=== PATIENT | female | born 1980 | race Caucasian/White ===

== ENCOUNTER 2017-01-28 23:05 | Emergency (ER) | payer OTHER ==
--- NOTE | ~2017-01-28 | EKG ---
PATIENT: MONICA KONG UNIT #: [id number] Ventricular Rate: 98 BPM Atrial Rate: 98 BPM P-R Interval: 118 ms QRS Duration: 76 ms Q-T Interval: 342 ms QTC Calculation(Bezet): 436 ms P [place]: 70 degrees Calculated R [place]: 53 degrees Calculated T [place]: 65 degrees Diagnosis Line: Normal sinus rhythm Diagnosis Line: Possible Left atrial enlargement Diagnosis Line: Borderline ECG Diagnosis Line: When compared with ECG of 28-JAN-2017 22:39, Diagnosis Line: (unconfirmed) Diagnosis Line: No significant change was found Diagnosis Line: Confirmed by ELIAS LAWTON MD ([id number]) on Diagnosis Line: 01/30/2017 4:44:42 PM INTERPRETING MD: KARLA
--- NOTE | ~2017-01-28 | CR72 ---
[facility] A Service of [facility] RADIOLOGY TEXT RESULTS PATIENT: MONICA KONG LOCATION: [facility] : 84 UNIT #: [id number] AGE: [address]: Paulino Ashby MD SEX: F ORDER DR: [id number] [facility] [address] [place], [place] [address] [id number] E MR#: [id number] Acc #: [id number] NAME: MONICA KONG : 1980 SEX: F STUDY DATE/TIME: 01/28/2017 22:24 UNIT: [facility] ROOM: STUDY DESCRIPTION: CR Chest Single View Portable Attending Physician: Paulino Ashby M.D. Ordering Physician: Ed Joey Pritchard M.D. Primary Care Physician: Primary Care Physician No MEDICAL IMAGING REPORT This report is preliminary unless electronic signature is present EXAM Portable chest, 01/28 at 22:24 INDICATIONS Sore throat, chest pain and tightness and shortness of air and cough that started today. FINDINGS AP portable chest was obtained. No comparison. Cardiac and mediastinal contours are normal. No pneumothorax is seen. The right lung is clear. At the left base, there is a potential 1.6 cm nodule, which is not definitely calcified. Non-emergent chest CT followup recommended. IMPRESSION Potential 1.6-cm nodule in the left lung base. Non-emergent chest CT followup recommended. The exam is otherwise negative. Dictated by... Uli Quinonez Jr., M.D. THIS IS AN ELECTRONICALLY VERIFIED REPORT Uli Quinonez Jr., M.D. at 01/29/2017 5:56 AM NOÉ/morteza TD: 01/29/2017 03:01 JOB #: [id number] MEDICAL IMAGING REPORT Page 1 of 1 COPY
[2017-01-28 22:06] LABS: BASOPHIL# 0.1 X10e3 (0-0.3); BASOPHIL% 0.4 % (0-2.5); DIFF IND YES; EOSINOPHIL% 0.1 % (0.0-7.0); HEMATOCRIT 44.3 % (35.0-45.0); HEMOGLOBIN 14.7 gm/dL (12.0-16.0); LYMPHOCYTE# 0.7 X10e3 (1.0-3.5); MEAN CELL VOLUME 87.5 FL (83-96); MEAN CORPUSCULAR HGB CONC 33.2 g/dL (30-36); MONOCYTE# 0.6 X10e3 (0-1.0); MONOCYTE% 2.6 % (3.0-12.0); NEUTROPHIL% 93.9 % (40-75); PLATELET COUNT 264 X10e3 (140-420); RED BLOOD COUNT 5.07 X10e (3.90-5.30); RED CELL DISTRIBUTION WIDTH 13.9 % (11.0-15.5); WHITE BLOOD COUNT 24.5 X10e3 (4.0-10.5)
[2017-01-28 22:19] LABS: ANISOCYTOSIS SL; PLATELET ESTIMATE NORMAL (NORMAL)
[2017-01-28 22:27] LABS: ALBUMIN SERUM 4.8 g/dL (3.5-5.0); BILIRUBIN, DIRECT 0.1 mg/dL (0.0-0.2); BILIRUBIN,INDIRECT 0.8 mg/dL (0.0-0.9); BILIRUBIN,TOTAL 0.9 mg/dL (0.2-2.0); CALCIUM SERUM 9.2 mg/dL (8.4-10.2); CREATININE SERUM 0.8 mg/dL (0.6-1.4); GLOM FILT RATE Estimated 96.3 mL/min (>60); POTASSIUM 4.2 mmol/L (3.5-5.1); PROTEIN TOTAL SERUM 8.7 g/dL (6.0-8.3)
[2017-01-28 23:35] LABS: INFLUENZA A NEG (NEG); INFLUENZA B NEG (NEG)
== END 2017-01-29 00:21 | disposition home or self-care (01) ==
LOC: CED 23:05
PROVIDERS: Emergency Medicine
DX: J18.9 Pneumonia, unspecified organism (principal); Z90.710 Acquired absence of both cervix and uterus; Z88.1 Allergy status to other antibiotic agents; Z88.2 Allergy status to sulfonamides; Z88.8 Allergy status to other drugs, medicaments and biological substances
CPT/HCPCS: 71010; 80048; 80076; 84703; 85025; 87651; 87804; 93005; 99284

== ENCOUNTER 2017-04-19 02:30 | Emergency (ER) | payer OTHER | END 2017-04-19 04:31 | disposition home or self-care (01) | LOC: CED 02:30 | PROVIDERS: Nurse Practitioner Family | DX: R21 Rash and other nonspecific skin eruption (principal); Z88.2 Allergy status to sulfonamides; Z88.1 Allergy status to other antibiotic agents; Z90.49 Acquired absence of other specified parts of digestive tract | CPT/HCPCS: 36415; 86617; 86618; 99282 ==